=== PATIENT | male | born 1965 | race African-American/Black ===

== ENCOUNTER 2020-03-19 08:57 | Day surgery (SDC) | payer OTHER ==
[2020-03-18 15:52] VITALS: BMI 31.8
[2020-03-19] MEDS ORDERED: LIDOCAINE HCL/PF 2% SDV 5ML VIAL ONE (09:53)
[2020-03-19] MEDS ORDERED: PROPOFOL 20 ML ONE ×3 (09:54)
[2020-03-19 13:48] VITALS: TEMP 98.1
[2020-03-19 13:50] VITALS: BP 122/77; PULSE 58
--- NOTE | 2020-03-22 18:13 | PATH ---
Surgical Pathology Report Patient Name: BEATRICE LEMUS [facility]. Rec. #: [id number] /Age/Gender: 1965 (Age: 55) / M Account: [id number] Location: [facility] Taken: 03/19/2020 Received: 03/19/2020 Reported: 03/22/2020 Physicians: Gigi Rodriguez M.D. Specimen(s) Received A: RECTUM POLYP B: VENEREAL WARTS Clinical History Screening Postoperative diagnosis: Colon polyp, venereal warts, hemorrhoids, diverticulosis Final Diagnosis A. RECTUM POLYP, BIOPSY: COLONIC MUCOSA WITH REACTIVE LYMPHOID AGGREGATE IN THE LAMINA PROPRIA AND FOCAL SURFACE HYPERPLASTIC CHANGE. B. VENEREAL WARTS, EXCISION: CONDYLOMA ACUMINATUM. Electronically Signed Jr Shaffer M.D. Gross Description A. Received in formalin, labeled "biopsy polyp rectum" is a galeana, irregular portion of soft tissue measuring 0.3 cm. in greatest dimension. The specimen is submitted in toto in one cassette. B. Received in formalin, labeled "biopsy venereal wart" is a galeana skin fragment measuring 0.4 cm. in greatest dimension. The specimen is submitted in toto in one cassette. 03/19/2020 saudi03/19/2020
== END 2020-03-19 11:05 | disposition home or self-care (01) ==
LOC: FASU-ENDO 08:57
PROVIDERS: ATTEND Internal Medicine Gastroenterology
PROC: 0DBP8ZX Excision of Rectum, Via Natural or Artificial Opening Endoscopic, Diagnostic (ICD-10-PCS; principal; 2020-03-19 10:02)
DX: Z12.11 Encounter for screening for malignant neoplasm of colon (principal); D12.8 Benign neoplasm of rectum; K57.30 Diverticulosis of large intestine without perforation or abscess without bleeding; K64.8 Other hemorrhoids; A63.0 Anogenital (venereal) warts
CPT/HCPCS: 88305-TC